=== PATIENT | female | born 1995 | race Caucasian/White ===

== ENCOUNTER 2021-06-14 18:32 | Emergency (ER) | payer MEDICAID ==
[2021-06-14] MEDS ORDERED: LORazepam 1 MG Tab PO ONE (19:22)
== END 2021-06-14 21:45 | disposition home or self-care (01) ==
LOC: JD.ED 18:32
DX: R07.89 Other chest pain (principal); M79.642 Pain in left hand; E66.9 Obesity, unspecified; Z68.41 Body mass index [BMI] 40.0-44.9, adult; Z88.2 Allergy status to sulfonamides; Z91.018 Allergy to other foods; Z87.891 Personal history of nicotine dependence; Z20.822 Contact with and (suspected) exposure to COVID-19
CPT/HCPCS: 36415; 36600; 71046; 80053; 81001; 81025; 82803; 83735; 83880; 84443; 84484; 85025; 85379; 87635; 93005; 99285; A9270; U0002

== ENCOUNTER 2021-11-14 15:40 | Emergency (ER) | payer MEDICAID | END 2021-11-14 17:04 | disposition home or self-care (01) | LOC: JD.ED 15:40 | DX: N39.0 Urinary tract infection, site not specified (principal); F17.210 Nicotine dependence, cigarettes, uncomplicated; E66.9 Obesity, unspecified; Z68.39 Body mass index [BMI] 39.0-39.9, adult; Z88.2 Allergy status to sulfonamides; Z91.048 Other nonmedicinal substance allergy status | CPT/HCPCS: 81001; 87086; 99283 ==

== ENCOUNTER 2022-03-12 15:29 | Day surgery (SDC) | payer MEDICAID ==
[2022-03-12] MEDS ORDERED: Sodium Chloride 0.9% 10 ML Syringe FLUSH PRN (15:49)
[2022-03-12] MEDS ORDERED: HYDROmorphone 0.5 MG/0.5 ML Syringe IVPUSH ONE ×2 (16:14→17:49)
[2022-03-12] MEDS ORDERED: Ondansetron 4 MG/2 ML SDV IVPUSH ONE (16:14)
[2022-03-12] MEDS ORDERED: Sodium Chloride 0.9% 1,000 ML IV STA (16:14)
[2022-03-12] MEDS ORDERED: Iopamidol 612 MG/ML 100 ML Bottle IVPUSH ONE (16:46)
[2022-03-12] MEDS ORDERED: Piperacillin/Tazobactam 4.5 GM in Sodium Chloride 0.9% 100 ML IV ONE (17:19)
[2022-03-12] MEDS ORDERED: Lidocaine 1% 5 ML VIAL ONE (18:13)
[2022-03-12] MEDS ORDERED: Propofol 200 MG/20 ML SDV ONE (18:13)
[2022-03-12] MEDS ORDERED: Rocuronium 50 MG/5 ML Vial ONE (18:13)
[2022-03-12] MEDS ORDERED: Ondansetron 4 MG/2 ML SDV ONE (18:13)
[2022-03-12] MEDS ORDERED: Midazolam 1 MG/ML 2 ML SDV ONE (18:13)
[2022-03-12] MEDS ORDERED: Dexamethasone 4 MG/ML 5 ML MDV ONE (18:14)
[2022-03-12] MEDS ORDERED: Succinylcholine 200 MG/10 ML MDV ONE (18:14)
[2022-03-12] MEDS ORDERED: fentaNYL 100 MCG/2 ML SDV ONE (18:15)
[2022-03-12] MEDS ORDERED: Lidocaine 1% with EPINEPHrine 1:100,000 10 ML MDV ONE (18:17)
[2022-03-12] MEDS ORDERED: Bupivacaine 0.5%/EPINEPHrine 1:200,000 50 ML MDV ONE (18:17)
[2022-03-12] MEDS ORDERED: Ondansetron 4 MG/2 ML SDV IVPUSH PRN (18:31)
[2022-03-12] MEDS ORDERED: HYDROmorphone 0.5 MG/0.5 ML Syringe IVPUSH PRN (18:31)
[2022-03-12] MEDS ORDERED: fentaNYL 100 MCG/2 ML SDV IVPUSH PRN (18:31)
[2022-03-12] MEDS ORDERED: Neostigmine Methylsulfate 10 MG/10 ML MDV ONE (19:10)
[2022-03-12] MEDS ORDERED: Ketorolac 30 MG/ML SDV ONE (19:21)
[2022-03-12] MEDS ORDERED: Lactated Ringers 1,000 ML ONE (19:37)
== END 2022-03-12 22:00 | disposition home or self-care (01) ==
LOC: JD.ED 15:29 → JD.SDS 18:10
PROVIDERS: ATTEND Surgery
DX: K35.80 Unspecified acute appendicitis (principal); F41.9 Anxiety disorder, unspecified; F32.A Depression, unspecified; E66.9 Obesity, unspecified; Z88.2 Allergy status to sulfonamides; Z88.8 Allergy status to other drugs, medicaments and biological substances; Z91.018 Allergy to other foods; Z79.899 Other long term (current) drug therapy; Z86.16 Personal history of COVID-19; Z98.890 Other specified postprocedural states; Z90.49 Acquired absence of other specified parts of digestive tract; Z87.891 Personal history of nicotine dependence; Z68.41 Body mass index [BMI] 40.0-44.9, adult
CPT/HCPCS: 36415; 44970; 74177; 80053; 83690; 85025; 86140; J0330; J1100; J1170; J1885; J2250; J2405; J2543; J2704; J2710; J3010; J3490; J7030; J7120; Q9967; 00840; 99140

== ENCOUNTER 2023-09-06 11:45 | Emergency (ER) | payer SELFPAY ==
[2023-09-06] MEDS: methylPREDNISolone Sodium Succinate 125 MG/2 ML SDV IM ONE (13:14)
[2023-09-06] MEDS: Ketorolac 60 MG/2 ML SDV IM ONE (13:15)
== END 2023-09-06 13:47 | disposition home or self-care (01) ==
LOC: JD.ED 11:45
DX: S93.402A Sprain of unspecified ligament of left ankle, initial encounter (principal); W22.8XXA Striking against or struck by other objects, initial encounter; Y92.512 Supermarket, store or market as the place of occurrence of the external cause; Y99.0 Civilian activity done for income or pay; E66.9 Obesity, unspecified; Z90.49 Acquired absence of other specified parts of digestive tract; Z86.16 Personal history of COVID-19; Z79.52 Long term (current) use of systemic steroids; Z88.2 Allergy status to sulfonamides; Z88.8 Allergy status to other drugs, medicaments and biological substances; Z91.018 Allergy to other foods
CPT/HCPCS: 73610; 73620; 96372; 99283; J1885; J2930

== ENCOUNTER 2023-12-01 11:21 | Emergency (ER) | payer SELFPAY ==
[2023-12-01 12:08] LABS: APPEARANCE,URINE CLEAR (Clear); BILIRUBIN,URINE NEGATIVE (Negative); COLOR,URINE RED (Yellow); GLUCOSE,URINE NEGATIVE (Negative); KETONES,URINE NEGATIVE (Negative); LEUKOCYTE ESTERASE,URINE TRACE (Negative); NITRITE,URINE NEGATIVE (Negative); OCCULT BLOOD,URINE 3+ (Negative); PROTEIN,URINE 2+ (Negative); UROBILINOGEN,URINE 0.2 (0.2-1.0)
[2023-12-01 12:12] LABS: BASOPHILS PERCENT AUTO 0.4 % (0.0-1.0); EOSINOPHILS ABSOLUTE AUTO 0.2 K/mm3 (0.0-0.4); EOSINOPHILS PERCENT AUTO 2.4 % (0.0-6.0); HEMATOCRIT 39.9 % (37.0-47.0); IMMATURE GRAN ABSOLUTE AUTO 0.02 K/mm3 (0.00-0.05); IMMATURE GRAN PERCENT AUTO 0.3 % (0.0-0.4); LYMPHOCYTES ABSOLUTE AUTO 1.3 K/mm3 (1.0-4.8); LYMPHOCYTES PERCENT AUTO 18.8 % (24.0-44.0); MEAN CORPUSCULAR HGB CONC 35.1 g/dl (32.0-36.0); MEAN CORPUSCULAR VOLUME 91.3 fl (83.0-99.0); MEAN PLATELET VOLUME 8.7 fl (9.4-12.3); MONOCYTES ABSOLUTE AUTO 0.8 K/mm3 (0.0-0.8); MONOCYTES PERCENT AUTO 10.7 % (0.0-8.0); NEUTROPHILS ABSOLUTE AUTO 4.7 K/mm3 (1.8-7.7); NEUTROPHILS PERCENT AUTO 67.4 % (41.0-71.0); PLATELET COUNT,PLT 254 K/mm3 (150-400); RED BLOOD CELL COUNT 4.37 M/mm3 (4.10-5.30); WHITE BLOOD CELL COUNT,WBC 6.98 K/mm3 (3.9-11.3)
[2023-12-01 12:40] LABS: ALBUMIN 3.7 g/dl (3.4-5.0); ANION GAP 13.9 (5-15); BILIRUBIN TOTAL 0.6 mg/dL (0.2-1.0); EST CRCL DRUG DOSING (CG) 69.28 mL/min; POTASSIUM,K 3.9 mEq/L (3.5-5.1); PROTEIN TOTAL,TP 7.3 g/dl (6.4-8.2)
[2023-12-01 12:49] LABS: BACTERIA,URINE MODERATE /hpf (FEW); MUCUS,URINE NOT SEEN /hpf (FEW); RBC,URINE >100 /hpf (0-5)
== END 2023-12-01 14:15 | disposition home or self-care (01) ==
LOC: JD.ED 11:21
DX: N92.1 Excessive and frequent menstruation with irregular cycle (principal); Z88.2 Allergy status to sulfonamides; Z88.5 Allergy status to narcotic agent; Z88.8 Allergy status to other drugs, medicaments and biological substances; Z91.018 Allergy to other foods; Z86.16 Personal history of COVID-19; Z90.49 Acquired absence of other specified parts of digestive tract; Z87.891 Personal history of nicotine dependence
CPT/HCPCS: 36415; 76830; 76830-26; 80053; 81001; 81025; 85025; 87086; 99282; 99284

== ENCOUNTER 2024-02-17 14:29 | Emergency (ER) | payer BC ==
[2024-02-17] MEDS ORDERED: Levalbuterol HCl 0.63 MG/3 ML Neb NEB ONE ×2 (14:34)
[2024-02-17] MEDS: Sodium Chloride 0.9% 1,000 ML IV ONE (15:08)
[2024-02-17] MEDS: methylPREDNISolone Sodium Succinate 125 MG/2 ML SDV IVPUSH ONE (15:09)
[2024-02-17] MEDS: EPINEPHrine 1 MG/ML SDV SUBCUT ONE (15:09)
[2024-02-17] MEDS: diphenhydrAMINE 50 MG/ML SDV IVPUSH ONE (15:09)
[2024-02-17] MEDS: Famotidine 20 MG/2 ML SDV IVPUSH ONE (15:09)
== END 2024-02-17 16:25 | disposition home or self-care (01) ==
LOC: JD.ED 14:29
DX: T78.1XXA Other adverse food reactions, not elsewhere classified, initial encounter (principal); Z86.16 Personal history of COVID-19; Z90.49 Acquired absence of other specified parts of digestive tract; Z88.2 Allergy status to sulfonamides; Z91.030 Bee allergy status; Z88.8 Allergy status to other drugs, medicaments and biological substances; Z91.018 Allergy to other foods
CPT/HCPCS: 94640; 96361; 96372; 96374; 96375; 99284; J0171; J1200; J2919; J3490; J7030

== ENCOUNTER 2024-05-03 13:39 | Emergency (ER) | payer BC, MEDICAID | END 2024-05-03 15:13 | disposition left against medical advice (07) | LOC: JD.ED 13:39 | DX: S09.90XA Unspecified injury of head, initial encounter (principal); G43.909 Migraine, unspecified, not intractable, without status migrainosus; E66.9 Obesity, unspecified; Z68.42 Body mass index [BMI] 45.0-49.9, adult; Z90.49 Acquired absence of other specified parts of digestive tract; Z87.891 Personal history of nicotine dependence; Z88.2 Allergy status to sulfonamides; Z88.8 Allergy status to other drugs, medicaments and biological substances; Z91.030 Bee allergy status; Z91.048 Other nonmedicinal substance allergy status; W01.198A Fall on same level from slipping, tripping and stumbling with subsequent striking against other object, initial encounter; Y99.0 Civilian activity done for income or pay | CPT/HCPCS: 99283 ==

== ENCOUNTER 2024-11-25 17:40 | Emergency (ER) | payer BC, MEDICAID ==
[2024-11-25] MEDS: Diphtheria,Pertussis(Acell),Tetanus Vaccine 0.5 ML Syringe IM ONE (18:55)
[2024-11-25] MEDS: Ketorolac 30 MG/ML SDV IM ONE (18:56)
[2024-11-25] MEDS: Amoxicillin/Clavulanate K 875-125 MG Tab PO ONE (18:57)
== END 2024-11-25 19:00 | disposition home or self-care (01) ==
LOC: JD.ED 17:40
DX: S01.311A Laceration without foreign body of right ear, initial encounter (principal); Z88.2 Allergy status to sulfonamides; Z91.030 Bee allergy status; Z88.8 Allergy status to other drugs, medicaments and biological substances; Z91.018 Allergy to other foods; Z23 Encounter for immunization; Z79.899 Other long term (current) drug therapy; W55.03XA Scratched by cat, initial encounter
CPT/HCPCS: 12011; 90471; 90715; 96372; 99283; A9270; J1885; J2003

== ENCOUNTER 2025-02-05 07:30 | Emergency (ER) | payer BC ==
[2025-02-05 08:47] LABS: BASOPHILS ABSOLUTE AUTO 0.0 K/mm3 (0.0-0.2); BASOPHILS PERCENT AUTO 0.5 % (0.0-1.0); EOSINOPHILS ABSOLUTE AUTO 0.2 K/mm3 (0.0-0.4); EOSINOPHILS PERCENT AUTO 2.4 % (0.0-6.0); IMMATURE GRAN ABSOLUTE AUTO 0.01 K/mm3 (0.00-0.05); IMMATURE GRAN PERCENT AUTO 0.1 % (0.0-0.4); LYMPHOCYTES ABSOLUTE AUTO 1.3 K/mm3 (1.0-4.8); LYMPHOCYTES PERCENT AUTO 16.6 % (24.0-44.0); MEAN PLATELET VOLUME 9.0 fl (9.4-12.3); MONOCYTES ABSOLUTE AUTO 0.6 K/mm3 (0.0-0.8); MONOCYTES PERCENT AUTO 7.5 % (0.0-8.0); NEUTROPHILS ABSOLUTE AUTO 5.7 K/mm3 (1.8-7.7); NEUTROPHILS PERCENT AUTO 72.9 % (41.0-71.0); NRBC ABSOLUTE 0.00 (0.00-0.02); NRBC PERCENT 0.0 % (0.0-0.2); PLATELET COUNT,PLT 279 K/mm3 (150-400); RED BLOOD CELL COUNT 4.76 M/mm3 (4.10-5.30); WHITE BLOOD CELL COUNT,WBC 7.76 K/mm3 (3.9-11.3)
[2025-02-05 09:12] LABS: A/G RATIO 0.9 (1-2); ALANINE AMINOTRANSFERASE,ALT 30.0 U/L (14-59); ASPARTATE AMNIOTRANSFERASE,AST 16.0 U/L (15-37); BILIRUBIN TOTAL 0.3 mg/dL (0.2-1.0); BLOOD UREA NITROGEN,BUN 16.0 mg/dL (7-18); CARBON DIOXIDE,CO2 25.0 mEq/L (21-32); CHLORIDE,CL 106.0 mEq/L (98-107); CREATININE 1.1 mg/dL (0.55-1.02); EST CRCL DRUG DOSING (CG) 61.05 mL/min; ESTIMATED GFR 70.0 mL/min (>60); GLUCOSE RANDOM 95.0 mg/dL (70-99); POTASSIUM,K 4.0 mEq/L (3.5-5.1); PROTEIN TOTAL,TP 7.5 g/dl (6.4-8.2); SODIUM,NA 138.0 mEq/L (136-145); TROPONIN I HIGH SENSITIVITY 4.0 pg/mL (<=51)
== END 2025-02-05 10:07 | disposition home or self-care (01) ==
LOC: JD.ED 07:30
DX: M54.12 Radiculopathy, cervical region (principal); M25.512 Pain in left shoulder; E66.9 Obesity, unspecified; Z88.8 Allergy status to other drugs, medicaments and biological substances; Z91.030 Bee allergy status; Z79.899 Other long term (current) drug therapy; Z90.49 Acquired absence of other specified parts of digestive tract; Z68.43 Body mass index [BMI] 50.0-59.9, adult
CPT/HCPCS: 36415; 71045; 72040; 73030; 80053; 84484; 85025; 93005; 99284; A9270; 93010